=== PATIENT | female | born 1945 | race Caucasian/White ===

== ENCOUNTER 2024-08-14 21:09 | Emergency (ER) | payer OTHER ==
[2024-08-14 21:48] VITALS: RESP 18; BMI 22.0
[2024-08-14] MEDS ORDERED: diazePAM 2 MG TABLET ONE (22:53)
[2024-08-14] MEDS ORDERED: METOCLOPRAMIDE HCL INJECTION 10 MG/2 ML VIAL ONE (22:53)
[2024-08-14] MEDS ORDERED: ACETAMINOPHEN INJECTION 100 ML ONE (22:53)
[2024-08-14 23:19] LABS: ABSOLUTE IMMATURE GRANULOCYTES 0.04 x10^3/uL (0.0-0.031); BASOPHILS # 0.04 x10^3/uL (0.01-0.08); EOSINOPHIL % 2.5 % (0.7-5.8); EOSINOPHILS # 0.23 x10^3/uL (0.04-0.36); HEMATOCRIT 45.4 % (34.1-44.9); MCHC 30.8 g/dl (32.2-35.5); MEAN CELL VOLUME 87.1 fl (79.4-94.8); MEAN PLT VOLUME 10.1 fl (9.4-12.3); MONOCYTE % 5.4 % (4.7-12.5); PLATELET COUNT 245 x10^3/uL (182-369); RDW 13.2 % (12.4-16.6)
[2024-08-14 23:43] LABS: POTASSIUM 4.1 mmol/L (3.5-5.1)
[2024-08-14 23:46] LABS: CALCIUM 8.9 mg/dL (8.5-10.1)
[2024-08-14 23:47] LABS: BLOOD UREA NITROGEN 13.3 mg/dL (7-18); MAGNESIUM 2.3 mg/dL (1.8-2.4)
[2024-08-14 23:50] LABS: CREATININE 0.7 mg/dL (0.55-1.3)
[2024-08-14 23:52] LABS: BILIRUBIN,TOTAL 0.4 mg/dL (0.2-1); TOT PROT 7.1 g/dl (6.4-8.2)
[2024-08-14] MEDS: SODIUM CHLORIDE 0.9% 500 ML INFUS.BAG IV ONE (23:54)
[2024-08-14] MEDS: diazePAM 2 MG TABLET PO ONE (23:55)
[2024-08-14] MEDS: ACETAMINOPHEN 1000 MG/100 ML BAG IVPB ONE (23:55)
[2024-08-14] MEDS: METOCLOPRAMIDE HCL INJECTION 10 MG/2 ML VIAL IVPB ONE (23:55)
[2024-08-15 01:11] VITALS: BP 108/52; PULSE 56
[2024-08-15 01:32] LABS: URINE APPEARANCE CLEAR; URINE BILIRUBIN NEGATIVE (NEGATIVE); URINE COLOR YELLOW; URINE GLUCOSE (UA) NEGATIVE (NEGATIVE); URINE KETONE NEGATIVE (NEGATIVE); URINE LEUK ESTERASE NEGATIVE (NEGATIVE); URINE NITRITE NEGATIVE (NEGATIVE); URINE PROTEIN NEGATIVE (NEGATIVE); URINE UROBILINOGEN 0.2 mg/dL (0.2-1.0)
[2024-08-15 01:46] VITALS: TEMP 97.7
== END 2024-08-15 02:19 | disposition home or self-care (01) ==
LOC: JER 21:09
PROC: 3E033NZ Introduction of Analgesics, Hypnotics, Sedatives into Peripheral Vein, Percutaneous Approach (ICD-10-PCS; principal; 2024-08-14)
PROC: 3E033GC Introduction of Other Therapeutic Substance into Peripheral Vein, Percutaneous Approach (ICD-10-PCS; 2024-08-14)
DX: R51.9 Headache, unspecified (principal); G89.29 Other chronic pain; M54.2 Cervicalgia; R07.81 Pleurodynia
CPT/HCPCS: 0241U-QW; 36415; 70450-TC; 71045-TC-FY; 80053; 81003; 83735; 84484; 85025; 87086; 87186; 93005; 93010; 99285-25; J0131